=== PATIENT | female | born 1960 | race Caucasian/White ===

== ENCOUNTER → 2017-02-02 | Outpatient (CLI) | payer OTHER ==
[~2017-02-02] MED LIST: CIPRO250 MG PO; HORMONE PILL; NICORETTE4 MG; SYNTHROID PO; ZOLOFT50 MG PO; [UNRECOGNIZED DRUG - OTHER]; [UNRECOGNIZED DRUG - SUPPLY]
--- NOTE | ~2017-02-02 | CR63 ---
[facility] [[email or web address]]. [facility] A Service of [facility] & [facility] RADIOLOGY TEXT RESULTS PATIENT: HERB YOUNG LOCATION: [facility] : 56 UNIT #: [id number] AGE: [address]: Neda Peñaloza [employer] WORKER SEX: F ORDER DR: [id number] [address] [address] [id number] O MR#: [id number] Acc #: [id number] NAME: HERB YOUNG : 1960 SEX: F STUDY DATE/TIME: 02/02/2017 9:02 UNIT: [facility] ROOM: STUDY DESCRIPTION: CR Chest 2 View Attending Physician: Neda Peñaloza A.P.R.N. Referring Physician: Neda Peñaloza A.P.R.N. Ordering Physician: Neda Peñaloza A.P.R.N. Primary Care Physician: Neda Peñaloza A.P.R.N. MEDICAL IMAGING REPORT This report is preliminary unless electronic signature is present. EXAM Chest, 02/02/2017. HISTORY 57-year-old woman with stabbing pain in left chest, shoulder and side. Symptoms began approximately 2 weeks ago. Patient indicates chills. Past smoker. COMPARISON Chest, 11/28/2014. FINDINGS PA and lateral chest views show normal stable cardiac size and configuration. Hilar structures are preserved and mediastinal contours appear normal. Right lung remains clear. There is now a strong suggestion of infiltrate in the left lower lobe associated with left base atelectasis and probably a left effusion. Empyema would be of concern with this presentation. Recommend chest CT followup to compare with a prior chest CT date 11/28/2014. IMPRESSION Left lower lobe pneumonia with associated atelectasis, left base, and probable left effusion concerning for empyema. Correlate clinically. Recommend follow up chest CT. STAT * RESULT Dictated by... Ascencion Gama M.D. THIS IS AN ELECTRONICALLY VERIFIED REPORT Ascencion Gama M.D. at 02/02/2017 2:43 PM [facility] A Service of [facility] & [facility] RADIOLOGY TEXT RESULTS PATIENT: HERB YOUNG LOCATION: [facility] : 56 UNIT #: [id number] AGE: [address]: Neda Peñaloza SEX: F ORDER DR: Freda TD: 02/02/2017 12:53 JOB #: [id number] MEDICAL IMAGING REPORT Page 1 of 1
== END | disposition home or self-care (01) ==
LOC: SRAD 08:49
DX: R07.9 Chest pain, unspecified (principal); J18.9 Pneumonia, unspecified organism; J98.11 Atelectasis
CPT/HCPCS: 71020